=== PATIENT | female | born 2000 | race Caucasian/White ===

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

== ENCOUNTER → 2022-02-07 | Outpatient (CLI) | payer OTHER ==
--- NOTE | 2022-02-07 11:25 | XR ---
EXAMINATION TYPE: XR cervical spine comp DATE OF EXAM: 02/07/2022 COMPARISON: 03/22/2019 HISTORY: Neck pain TECHNIQUE: Four views are submitted. FINDINGS: The odontoid is intact. There are no compression deformities. The prevertebral soft tissue structur es are within normal limits. Small bilateral cervical ribs IMPRESSION: 1. No acute process. Small bilateral cervical ribs correlate with MRI
== END | disposition home or self-care (01) ==
LOC: RADXRMAIN 10:53
PROVIDERS: ATTEND Family Medicine
DX: S13.4XXA Sprain of ligaments of cervical spine, initial encounter (principal)
CPT/HCPCS: 72050

== ENCOUNTER 2024-02-02 13:24 | Emergency (ER) | payer OTHER ==
--- NOTE | 2024-02-02 14:02 | USB ---
Reason for Exam: Clinical finding. Technique: Method: Targeted. Findings: The area of palpable concern of the left breast, the axilla of the left breast and the retroareolar of the left breast were scanned. 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 Three-month follow-up is advised.. Overall Assessment: Probably benign, BI-RAD 3 Management: Diagnostic Breast Ultrasound of the left breast in 3 months. A clinical breast exam by your physician is recommended on an annual basis and results should be correlated with mammographic findings. This exam should not preclude additional follow-up of suspicious palpable abnormalities. Results were given to the patient verbally at the time of exam. [facility], , 02/02/2024 1:59 PM. Electronically signed and approved by: Reagan Hoyt M.D. Radiologis
--- NOTE | 2024-02-02 16:34 | ED ---
Skin/Abscess/FB HPI - General Chief complaint: Skin/Abscess/Foreign Body Stated complaint: painful lump under L breast Time Seen by Provider: 02/02/24 16:33 Source: patient, RN notes reviewed Mode of arrival: ambulatory Limitations: no limitations - History of Present Illness Initial comments: 23-year-old female presented to the ER with a chief complaint of a left breast mass. Patient states that she was showering yesterday and while washing herself she noticed a lump to her left breast. She states it is the size of a pea. She does report it is mildly tender. Patient denies any nipple discharge, overlying skin changes, fevers or chills. No known injuries to the area. No other complaints. - Related Data Home Medications Medication Instructions Recorded Confirmed Albuterol Inhaler [Ventolin Hfa 1 puff INHALATION DAILY PRN 10/18/19 10/20/19 Inhaler] Stomach Med 1 tab PO DAILY 10/18/19 10/20/19 Allergies Allergy/AdvReac Type Severity Reaction Status Date / Time Penicillins Allergy Unknown Verified 02/02/24 13:28 Review of Systems ROS Statement: Those systems with pertinent positive or pertinent negative responses have been documented in the HPI. ROS Other: All systems not noted in ROS Statement are negative. Past Medical History Past Medical History: Asthma Additional Past Medical History / Comment(s): stomach issues with wt loss and pain History of Any Multi-Drug Resistant Organisms: None Reported Past Surgical History: Orthopedic Surgery Additional Past Surgical History / Comment(s): chipped bone rt knee Past Anesthesia/Blood Transfusion Reactions: No Reported Reaction Past Psychological History: Depression Smoking Status: Vaper Past Alcohol Use History: None Reported Past Drug Use History: Marijuana - Past Family History Mother Family Medical History: No Reported History General Exam Limitations: no limitations General appearance: alert, in no apparent distress Respiratory exam: Present: normal lung sounds bilaterally. Absent: respiratory distress, wheezes, rales, rhonchi, stridor Cardiovascular Exam: Present: regular rate, normal rhythm, normal heart sounds. Absent: systolic murmur, diastolic murmur, rubs, gallop, clicks Skin exam: Present: other (Left breast exam around 6:00 there is a 1 x 1 cm mobile hard nodule. No nipple discharge. No overlying skin changes.) Course Vital Signs 02/02/24 02/02/24 13:25 16:57 Temperature 98.2 F 98.1 F Pulse Rate 109 H 96 Respiratory 16 18 Rate Blood Pressure 128/83 122/80 O2 Sat by Pulse 97 98 Oximetry Medical Decision Making - Medical Decision Making Was pt. sent in by a medical professional or institution (, [place], [facility], urgent care, hospital, or shelter...) When possible be specific @ -No Did you speak to anyone other than the patient for history (EMS, parent, family, police, friend...)? What history was obtained from this source @ -No Did you review nursing and triage notes (agree or disagree)? Why? @ -I reviewed and agree with nursing and triage notes Were old charts reviewed (outside hosp., previous admission, EMS record, old EKG, old radiological studies, urgent care reports/EKG's, shelter records)? Report findings @ -No old charts were reviewed Differential Diagnosis (chest pain, altered mental status, abdominal pain women, abdominal pain men, vaginal bleeding, weakness, fever, dyspnea, syncope, headache, dizziness, GI bleed, back pain, seizure, CVA, palpatations, mental health, musculoskeletal)? @ -Mastitis, gynecomastia, fibroadenoma, cyst This list is not meant to be all-inclusive EKG interpreted by me (3pts min.). @ -None done X-rays interpreted by me (1pt min.). @ -None done CT interpreted by me (1pt min.). @ -None done U/S interpreted by me (1pt. min.). @ -Left breast ultrasound hypoechoic lesion noted at o'clock position present meters from the nipple measuring 1.5 x 0.7 cm likely related to fibroadenoma. 3-month follow-up recommended. What testing was considered but not performed or refused? (CT, X-rays, U/S, labs)? Why? @ -None What meds were considered but not given or refused? Why? @ -None Did you discuss the management of the patient with other professionals (professionals i.e. , [facility], [facility], lab, RT, psych nurse, pediatric social worker, tagman, t eacher, commissioned police officer, counter caser)? Give summary @ -No Was smoking cessation discussed for >3mins.? @ -No Was critical care preformed (if so, how long)? @ -No Were there social determinants of health that impacted care today? How? (Homelessness, low income, unemployed, alcoholism, drug addiction, transportation, low edu. Level, literacy, decrease access to med. care, senior care, rehab)? @ -No Was there de-escalation of care discussed even if they declined (Discuss DNR or withdrawal of care, Hospice)? DNR status @ -No What co-morbidities impacted this encounter? (DM, HTN, Smoking, COPD, CAD, Cancer, CVA, ARF, Chemo, Hep., AIDS, mental health diagnosis, sleep apnea, morbid obesity)? @ -None Was patient admitted / discharged? Hospital course, mention meds given and route, prescriptions, significant lab abnormalities, going to OR and other pertinent info. @ -Discharge. 23-year-old female presented to ER with a chief complaint of left breast mass. History and physical exam completed. Vitals within normal limits. Patient in no significant distress. Exam remarkable for a 1.1 cm hard nodule noted at the 6 o'clock position. Nodule is mobile. No nipple discharge or overlying skin changes. Ultrasound obtained showing a fibroadenoma. Results discussed with patient, all questions answered. Advise close follow-up with PCP and/or [facility] in 3 months for further evaluation. Strict return parameters discussed. Patient discharged in stable condition. Patient verbally expressed understanding agree with care plan. Case discussed with the attending, Dr. Oliva. Undiagnosed new problem with uncertain prognosis? @ -No Drug Therapy requiring intensive monitoring for toxicity (Heparin, Nitro, Insulin, Cardizem)? @ -No Were any procedures done? @ -No Diagnosis/symptom? @ -Fibroadenoma of left breast Acute, or Chronic, or Acute on Chronic? @ -Acute Uncomplicated (without systemic symptoms) or Complicated (systemic symptoms)? @ -Uncomplicated Side effects of treatment? @ -No Exacerbation, Progression, or Severe Exacerbation? @ -No Poses a threat to life or bodily function? How? (Chest pain, [place], [place], pneumonia, PE, COPD, DKA, ARF, appy, cholecystitis, CVA, Diverticulitis, Homicidal, Suicidal, threat to staff... and all critical care pts) @ -No - Radiology Data Radiology results: report reviewed, image reviewed Disposition Clinical Impression: Fibroadenoma of breast Disposition: HOME SELF-CARE Condition: Stable Instructions (If sedation given, give patient instructions): Breast Self Exam for Women (ED), Fibrocystic Breast Changes (ED) Additional Instructions: Please follow-up with PCP and/or [facility] within the next 3 months for further evaluation of fibroadenoma. Return to the ER for any new or worsening concerns. Is patient prescribed a controlled substance at d/c from ED?: No Referrals: Yandel Ramon DO [Primary Care Provider] - 1-2 days Hui Cooper DO [Doctor of Osteopathic Medicine] - 1-2 days Time of Disposition: 16:34
[2024-02-02 16:58] VITALS: BP 122/80; PULSE 96; RESP 18; TEMP 98.1
== END 2024-02-02 16:58 | disposition home or self-care (01) ==
LOC: EC 13:24
CPT/HCPCS: 99283